=== PATIENT | male | born 1985 | race Caucasian/White ===

== ENCOUNTER 2017-05-02 23:07 | Observation (INO) | payer SELFPAY ==
[~2017-05-02] VITALS: Ht 170.2 cm; Wt 88.0 kg
[2017-05-02 23:30] VITALS: BP 135/77; PULSE 80; RESP 16; O2SAT 100
--- NOTE | 2017-05-02 23:45 | PD ---
HPI Chief Complaint: urinary retention Time Seen by Provider: 23:44 Travel History International Travel<30 days: No Contact w/Intl Traveler<30days: No Traveled to known affect area: No History of Present Illness HPI 31-year-old male accepted in transfer of care from [place] by Dr. Reed for evaluation of urinary retention with history of urethral stricture. Patient's case has reportedly been discussed with on-call urologist Dr Malik to be notified upon patient's arrival. Patient here reports that he has urinary urgency and has actually produced urine output without hematuria. Patient still complains of some suprapubic pressure but notes marked improvement of symptoms compared to evaluation at previous facility. Patient denies fever chills nausea vomiting flank pain. Patient had no trauma. Patient is required previous surgical intervention for urinary retention secondary to history of urethral stricture. [facility] Past Medical History Narrative Medical uretharal strictures;nursing notes reviewed Genitourinary: Yes (urinary retention) Past Surgical History Genitourinary Surgery: Yes (urinary stricture-cath placed) Social History Alcohol Use: No Tobacco Use: No Substance Use: Yes (weed) Allergies-Medications (Allergen,Severity, Reaction): Coded Allergies: Penicillins (Verified Allergy, Severe, 05/03/17) codeine (Verified Allergy, Severe, 05/03/17) Reported Meds & Prescriptions Reported Meds & Active Scripts Active No Active Prescriptions or Reported Medications Review of Systems Except as stated in HPI: all other systems reviewed are Neg Physical Exam Narrative GENERAL: Well-developed well-nourished male no acute distress or respiratory distress ambulating about the emergency department exam room SKIN: Warm and dry. HEAD: Normocephalic. EYES: No scleral icterus. No injection or drainage. NECK: Supple, trachea midline. No JVD or lymphadenopathy. CARDIOVASCULAR: Regular rate and rhythm without murmurs, gallops, or rubs. RESPIRATORY: Breath sounds equal bilaterally. No accessory muscle use. GASTROINTESTINAL: Abdomen soft, non-tender, nondistended. MUSCULOSKELETAL: No cyanosis, or edema. BACK: Nontender without obvious deformity. No CVA tenderness. Data Data Last Documented VS Vital Signs Date Time Temp Pulse Resp B/P (MAP) Pulse Ox O2 Delivery O2 Flow Rate FiO2 05/02/17 23:30 80 16 135/77 (96) 100 Orders Orders Urinalysis - C+S If Indicated (05/02/17 23:33) Basic Metabolic Panel (Bmp) (05/02/17 23:33) Place In Observation (05/03/17 ) Vital Signs (Adult) Q4H (05/03/17 00:22) Activity Oob Ad Elizabeth (05/03/17 00:22) Intake + Output HEAVEN.QSHIFT (05/03/17 00:22) Diet Npo (05/03/17 Breakfast) Sodium Chloride 0.9% Flush (Ns Flush) (05/03/17 00:30) Sodium Chloride 0.9% Flush (Ns Flush) (05/03/17 09:00) Acetaminophen (Tylenol) (05/03/17 00:30) Ondansetron Inj (Zofran Inj) (05/03/17 00:30) Naloxone Inj (Narcan Inj) (05/03/17 00:30) Consult Urology (05/03/17 ) (Hub Use Only)Inp Phy Cons/Ref (05/03/17 ) Admit Order (Ed Use Only) (05/03/17 ) Vital Signs (Adult) Q4H (05/03/17 00:27) Activity Oob With Assistance (05/03/17 00:27) Notify Dr: Other (05/03/17 00:27) Labs Laboratory Tests Test 05/02/17 23:50 Urine Color YELLOW Urine Turbidity CLEAR Urine pH 6.5 Urine Specific [place] 1.023 Urine Protein 30 mg/dL Urine Glucose (UA) NEG mg/dL Urine Ketones NEG mg/dL Urine Occult Blood TRACE Urine Nitrite NEG Urine Bilirubin NEG Urine Urobilinogen LESS THAN 2.0 MG/DL Urine Leukocyte Esterase NEG Urine RBC 20 /hpf Urine WBC 3 /hpf Urine Squamous Epithelial Cells 1 /hpf Urine Bacteria OCC /hpf Urine Mucus FEW /lpf Microscopic Urinalysis Comment CULT NOT INDICATED Blood Urea Nitrogen 24 MG/DL Creatinine 1.12 MG/DL Random Glucose 116 MG/DL Calcium Level 8.7 MG/DL Sodium Level 143 MEQ/L Potassium Level 4.4 MEQ/L Chloride Level 108 MEQ/L Carbon Dioxide Level 27.0 MEQ/L Anion Gap 8 MEQ/L Estimat Glomerular Filtration Rate 78 ML/MIN MDM Medical Decision Making Medical Screen Exam Complete: Yes Emergency Medical Condition: Yes Medical Record Reviewed: Yes Differential Diagnosis Urinary retention, urethral stricture, UTI, BPH, renal insufficiency Narrative Course Upon arrival to the emergency department patient request urinal to urinate but at 400 cc of clear urine and then subsequently 350 cc of urine and bladder scan identify 675 a retained urine; call placed to Dr. Malik Per urologist will see in consultation in the a.m. will not take directly to OR for emergency urologic intervention Patient's case discussed with on-call medicine for observation admission and neurology consult Physician Communication Physician Communication call placed to Dr Malik ---admit OBS to [facility] will see in AM Diagnosis Primary Impression: Difficult or painful urination Additional Impression: H/O urinary retention Admitting Information Admitting Physician Requests: Observation Scripts No Active Prescriptions or Reported Meds Felicia Anderson MD May 02, 2017 23:45
[2017-05-03 00:24] LABS: BACTERIA, URINE OCC /hpf; BILIRUBIN, URINE NEG (NEG); BLOOD, URINE TRACE (NEG); GLUCOSE,URINE NEG (NEG); KETONE, URINE NEG (NEG); MUCUS URINE FEW /lpf (OCC); NITRITE,URINE NEG (NEG); PH, URINE 6.5 (5.0-8.5); SQUAMOUS EPITHELIAL CELL URINE 1 /hpf (0-5); URINE COLOR YELLOW (YELLW/STRAW); URINE LEUKOCYTE ESTERASE NEG (NEG)
[2017-05-03] MEDS ORDERED: ONDANSETRON HCL 4 MG/2 ML VIAL IVP PRN (00:30)
[2017-05-03] MEDS ORDERED: ACETAMINOPHEN 325 MG TAB PO PRN (00:30)
[2017-05-03] MEDS ORDERED: NALOXONE HCL 0.4 MG/ML AMP IV PUSH PRN (00:30)
[2017-05-03] MEDS ORDERED: SODIUM CHLORIDE 0.9% FLUSH 10 ML FLUSH IV FLUSH PRN (00:30)
[2017-05-03 00:41] LABS: CALCIUM 8.7 MG/DL (8.5-10.1); CREATININE 1.12 MG/DL (0.60-1.30)
--- NOTE | 2017-05-03 02:09 | HHI.HP ---
[facility] No Primary Care Physician Admission Diagnosis urinary retention Diagnoses: Travel History International Travel<30 Days: No Contact w/Intl Traveler <30 Da: No Traveled to Known Affected Are: No History of Present Illness 31-year-old male with a past medical history significant for urinary retention secondary to urethral strictures presents to the emergency department with urinary retention. The patient reports that he last urinated at 7:30 AM yesterday. He states he was having associated pelvic pain/pressure. He urinated spontaneously on arrival to the emergency department and states it was a large volume of juice colored urine. He denies any blood in the urine. No fever/chills. No chest pain/shortness of breath. No nausea/vomiting/diarrhea. Review of Systems Except as stated in HPI: all other systems reviewed are Neg Past Family Social History Past Medical History History of urethral strictures Past Surgical History Urethral dilation 3 in 1991, 2008 and November 2016 Reported Medications Reported Meds & Active Scripts Active No Active Prescriptions or Reported Medications Allergies: Coded Allergies: Penicillins (Verified Allergy, Severe, 05/02/17) codeine (Verified Allergy, Severe, 05/02/17) Family History Mom with diabetes mellitus Social History Positive marijuana. Occasional alcohol. Denies tobacco and other illicit drugs. Physical Exam Vital Signs Vital Signs Date Time Temp Pulse Resp B/P (MAP) Pulse Ox O2 Delivery O2 Flow Rate FiO2 05/02/17 23:30 80 16 135/77 (96) 100 Physical Exam GENERAL: male lying in bed, sleeping SKIN: No rashes, ecchymoses or lesions. Cool and dry. HEAD: Atraumatic. Normocephalic. No temporal or scalp tenderness. EYES: Pupils equal round and reactive. Extraocular motions intact. No scleral icterus. No injection or drainage. ENT: Nose without bleeding, purulent drainage or septal hematoma. Throat without erythema, tonsillar hypertrophy or exudate. Uvula midline. Airway patent. NECK: Trachea midline. No JVD or lymphadenopathy. Supple, nontender, no meningeal signs. CARDIOVASCULAR: Regular rate and rhythm without murmurs, gallops, or rubs. RESPIRATORY: Clear to auscultation. Breath sounds equal bilaterally. No wheezes , rales, or rhonchi. GASTROINTESTINAL: Abdomen soft, non-tender, nondistended. No hepato-splenomegaly , or palpable masses. No guarding. MUSCULOSKELETAL: Extremities without clubbing, cyanosis, or edema. No joint tenderness, effusion, or edema noted. No calf tenderness. NEUROLOGICAL: Awake and alert. Cranial nerves II through XII intact. Motor and sensory grossly within normal limits. Normal speech. Laboratory Laboratory Tests Test 05/02/17 23:50 Urine Color YELLOW Urine Turbidity CLEAR Urine pH 6.5 Urine Specific [place] 1.023 Urine Protein 30 Urine Glucose (UA) NEG Urine Ketones NEG Urine Occult Blood TRACE Urine Nitrite NEG Urine Bilirubin NEG Urine Urobilinogen LESS THAN 2.0 Urine Leukocyte Esterase NEG Urine RBC 20 Urine WBC 3 Urine Squamous Epithelial Cells 1 Urine Bacteria OCC Urine Mucus FEW Microscopic Urinalysis Comment CULT NOT INDICATED Blood Urea Nitrogen 24 Creatinine 1.12 Random Glucose 116 Calcium Level 8.7 Sodium Level 143 Potassium Level 4.4 Chloride Level 108 Carbon Dioxide Level 27.0 Anion Gap 8 Estimat Glomerular Filtration Rate 78 Result Diagram: 05/02/17 2350 Caprini VTE Risk Assessment Caprini VTE Risk Assessment: No/Low Risk (score <= 1) Caprini Risk Assessment Model Point Value = 1 Point Value = 2 Point Value = 3 Point Value = 5 Age 41-60 Minor surgery BMI > 25 kg/m2 Swollen legs Varicose veins or History of unexplained or recurrent spontaneous Oral contraceptives or hormone replacement Sepsis (< 1 month) Serious lung disease, including pneumonia (< 1 month) Abnormal pulmonary function Acute myocardial infarction Congestive heart failure (< 1 month) History of inflammatory bowel disease Medical patient at bed rest Age 61-74 Arthroscopic surgery Major open surgery (> 45 min) Laparoscopic surgery (> 45 min) Malignancy Confined to bed (> 72 hours) Immobilizing plaster cast Central venous access Age >= 75 History of VTE Family history of VTE Factor V Leiden Prothrombin [id number] Lupus anticoagulant Anticardiolipin antibodies Elevated serum homocysteine Heparin-induced thrombocytopenia Other congenital or acquired thrombophilia Stroke (< 1 month) Elective arthroplasty Hip, pelvis, or leg fracture Acute spinal cord injury (< 1 month) Prophylaxis Regimen Total Risk Factor Score Risk Level Prophylaxis Regimen 0-1 Low Early ambulation 2 Moderate Order ONE of the following: *Sequential Compression Device (SCD) *Heparin 5000 units SQ BID 3-4 Higher Order ONE of the following medications: *Heparin 5000 units SQ TID *Enoxaparin/Lovenox 40 mg SQ daily (WT < 150 kg, CrCl > 30 mL/min) *Enoxaparin/Lovenox 30 mg SQ daily (WT < 150 kg, CrCl > 10-29 mL/min) *Enoxaparin/Lovenox 30 mg SQ BID (WT < 150 kg, CrCl > 30 mL/min) AND/OR *Sequential Compression Device (SCD) 5 or more Highest Order ONE of the following medications: *Heparin 5000 units SQ TID (Preferred with Epidurals) *Enoxaparin/Lovenox 40 mg SQ daily (WT < 150 kg, CrCl > 30 mL/min) *Enoxaparin/Lovenox 30 mg SQ daily (WT < 150 kg, CrCl > 10-29 mL/min) *Enoxaparin/Lovenox 30 mg SQ BID (WT < 150 kg, CrCl > 30 mL/min) AND *Sequential Compression Device (SCD) Assessment and Plan Assessment and Plan Assessment/plan: 1. Urinary retention Spontaneously resolved Patient with history of urinary strictures causing retention Urology consulted, appreciate assistance - anticipate procedure later today FEN NPO NS at 100 cc/hr Electrolytes: monitor and replete prn Ambulation Nedra Li MD May 03, 2017 02:09
[2017-05-03 02:46] VITALS: BP 130/73
[2017-05-03] MEDS: SODIUM CHLOR 0.9% 1000 ML INJ 1,000 ML IV SCH ×2 (03:08→12:15)
[2017-05-03 03:52] VITALS: BP 123/65; PULSE 76; RESP 20; TEMP 98.6; O2SAT 99
[2017-05-03 08:13] VITALS: BP 119/63; PULSE 72; RESP 18; TEMP 98.3; O2SAT 97
[2017-05-03] MEDS ORDERED: SODIUM CHLORIDE 0.9% FLUSH 10 ML FLUSH IV FLUSH SCH (09:00)
--- NOTE | 2017-05-03 10:30 | HHI.PR ---
Subjective Remarks Follow up urinary retention -patient seen and examined; states while in the ED he was a total of 1L urine out and now he feels relieved ; however since admission to the [place] he has not urinated yet Objective Vitals Vital Signs Date Time Temp Pulse Resp B/P (MAP) Pulse Ox O2 Delivery O2 Flow Rate FiO2 05/03/17 08:13 98.3 72 18 119/63 (81) 97 05/03/17 03:52 98.6 76 20 123/65 (84) 99 05/03/17 02:46 78 15 130/73 (92) 98 05/02/17 23:30 80 16 135/77 (96) 100 I/O 05/02/17 05/02/17 05/02/17 05/03/17 05/03/17 05/03/17 07:00 15:00 23:00 07:00 15:00 23:00 Intake Total 179 ml Output Total 1500 ml 440 ml Balance -1321 ml -440 ml Intake IV Total 179 ml Output Urine Total 1500 ml 440 ml Bladder Scan Volume Amount 674 ml # Voids 1 1 Result Diagram: 05/02/170 Objective Remarks GENERAL: NAD SKIN: Warm and dry. HEAD: Normocephalic. EYES: No scleral icterus. No injection or drainage. NECK: Supple, trachea midline. No JVD or lymphadenopathy. CARDIOVASCULAR: Regular rate and rhythm without murmurs, gallops, or rubs. RESPIRATORY: Breath sounds equal bilaterally. No accessory muscle use. GASTROINTESTINAL: Abdomen soft, non-tender, nondistended. MUSCULOSKELETAL: No cyanosis, or edema. BACK: Nontender without obvious deformity. No CVA tenderness. A/P Problem List: (1) Difficult or painful urination ICD Code: R30.0 - Dysuria Status: Acute Assessment and Plan 31 years old man with 1. Urinary retention Spontaneously resolved Patient with history of urinary strictures causing retention Urology consulted, appreciate assistance - anticipate possible procedure later today Lorenzo Armendariz MD May 03, 2017 10:30
--- NOTE | 2017-05-03 12:09 | HHI.PR ---
Addendum to Inpatient Note Addendum Reason: Additional Documentation Additional Information Patient was seen by urology and clear for discharge with follow-up next week Discharge patient to home Condition on discharge: Improved Regular Diet as tolerated Ad Elizabeth activity Rx written:None Follow-up with primary care physician in 1 week Urology in 1 week Lorenzo Armendariz MD May 03, 2017 12:09
--- NOTE | 2017-05-03 14:48 | MB ---
cc: Rj Malik MD DATE OF CONSULT: 05/03/2017 REASON FOR CONSULTATION: 1. Urinary retention. 2. History of urethral stricture. HISTORY OF PRESENT ILLNESS: Patient is a 31-year-old male with a past medical history significant for urethral strictures causing urinary retention, who has undergone multiple urethral dilations in the past, most recently 11/2016. Presents to [facility] ER last night, did not urinate for over 10 hours. Patient felt the urge to go but could not start his stream. A bladder scan was done in the [place] [facility] that showed greater than 800. Several attempts were made to pass a Guerrero catheter but were unsuccessful. Urology was consulted from the emergency department and transferred to [facility] for further evaluation. Once he got to the ER in [facility], he was able to urinate large volumes, approximately 800 mL of light-colored urine. He immediately felt better. He denies nausea, vomiting, fevers, chills or hematuria. He was then subsequently admitted for observation; however, overnight, he then has urinated several other times and has felt completely comfortable. He was last dilated by Dr. Shaikh back in November and was instructed to straight cath himself on a daily basis; however, he was not compliant and did not follow up. He denies history of kidney stones but has had urinary tract infections in the past. Currently, he is quite comfortable and wishes to go home. REVIEW OF SYSTEMS: See HPI. All other systems reviewed otherwise are negative. PAST MEDICAL HISTORY: Significant for history of urethral strictures. SURGICAL HISTORY: Urethral dilation x 3 in 1991, 2008 and 2016. ALLERGIES: TO PENICILLIN AND CODEINE. ACTIVE MEDICATIONS: None. FAMILY HISTORY: Mother has diabetes but denies urolithiasis, genitourinary malignancies. SOCIAL HISTORY: He denies tobacco, illicit drugs. He occasionally drinks alcohol and does smoke marijuana. PHYSICAL EXAMINATION: VITAL SIGNS: Temp 98.3, pulse 72, respiratory rate 18, BP 119/68, satting 97% on room air. GENERAL: He is alert, oriented x 3, in no apparent distress. Pleasant and cooperative gentleman who appears his stated age. HEAD: Normocephalic, atraumatic. Eyes: No scleral icterus. Extraocular muscles intact. External nares are normal. No bleeding from his nose. External auditory canals normal. Hearing is normal. NECK: Supple. Trachea is midline. No JVD. LUNGS: Clear to auscultation bilaterally. No wheezes, rales, rhonchi. HEART: Regular rate and rhythm. No murmurs, gallops or rubs. ABDOMEN: Soft but obese, nontender, nondistended with positive bowel sounds. GENITOURINARY: Penis is circumcised. Testes descended bilaterally. Normal in size and consistency without mass. RECTAL: Not indicated at this time. EXTREMITIES: Nontender. No clubbing, cyanosis, or edema. SKIN: No ulcers or rashes. Cool and dry. NEUROLOGIC: Cranial nerves 2-12 intact. Strength 5/5 all 4 extremities. LABORATORIES: Show sodium 143, potassium 4.4, chloride 108, bicarb 27, BUN 24, creatinine 1.12. Urine shows trace blood, 20 red blood cells, negative nitrites. ASSESSMENT AND PLAN: Patient is a 31-year-old male with history of urethral strictures, who was admitted to [place] with urinary retention, which spontaneously resolved on its own. The plan from urology standpoint, okay to discharge, discharge home. He can follow up with either myself or Dr. Shaikh as an outpatient for a cystoscopy and possible urethral dilation. Instructed the patient that it would be a good idea that he definitely follows up this time, as this could be a serious problem going forward. Both he and his girlfriend understand the plan. MD EZIO Santiago/RADHA , 01:10 PM , 02:46 PM MAR[place]
== END 2017-05-03 13:05 | disposition home or self-care (01) ==
LOC: NEPC 23:07 → NEDA 05-03 00:29 → H6YA 05-03 03:52
PROVIDERS: ADMIT Hospitalist; ATTEND Hospitalist
DX: R33.9 Retention of urine, unspecified (principal); R39.15 Urgency of urination; F12.90 Cannabis use, unspecified, uncomplicated; Z87.440 Personal history of urinary (tract) infections
CPT/HCPCS: 51702; 80048; 81001; 99285; G0378; J7030